=== PATIENT | male | born 1965 | race African-American/Black ===

== ENCOUNTER 2025-04-30 23:09 | Emergency (ER) | payer MEDICAID, OTHER, SELFPAY ==
[2025-05-01 00:04] LABS: Acetaminophen Less than 10 mcg/mL (Less than 10); Lipase 77 U/L (8-78); Salicylate Less than 8.0 mg/dL (Less than 8.0)
[2025-05-01 00:29] LABS: Platelet Adequacy Comment Appears Adequate; Platelet Count 129 10x3/uL (150-450)
[2025-05-01 00:30] LABS: #Basophils 0.06 10x3/uL (0.0-0.2); #Eosinophils 0.10 10x3/uL (0.0-0.5); #Monocytes 0.53 10x3/uL (0.0-1.1); #Neutrophils 2.09 10x3/uL (1.5-8.4); %Basophils 1.1 % (0.0-2.0); %Eosinophils 1.8 % (0.0-6.0); %Lymphocytes 50.4 % (18.0-47.0); %Monocytes 9.4 % (0.0-10.0); %Neutrophils 36.8 % (40.0-75.0); Hematocrit 47.2 % (38.8-50.0); Hemoglobin 16.0 g/dL (13.5-17.5); Mean Corpuscular Hemoglobin 34.4 pg (27.0-33.0); Mean Corpuscular Volume 101.5 fL (81.2-95.1); Red Blood Cell (RBC) Count 4.65 10x6/uL (4.32-5.72); White Blood Cell (WBC) Count 5.66 10x3/uL (3.5-10.5)
[2025-05-01 00:57] LABS: ALT (SGPT) 19 U/L (Less than 45); AST (SGOT) 57 U/L (11-34); Albumin 3.6 g/dL (3.1-4.5); Alkaline Phosphatase 124 U/L (40-110); Anion Gap 22 mmol/L (10-20); BUN (Urea Nitrogen) 4 mg/dL (8.4-25.7); Bilirubin, Total 0.5 mg/dL (0.3-1.2); Calc. Creatinine Clearance 0 mL/min (70-130); Calcium 8.7 mg/dL (7.8-10.44); Carbon Dioxide 17 mmol/L (22-29); Chloride 105 mmol/L (98-107); Globulin 4.1 g/dL (2.4-3.5); Glucose 66 mg/dL (70-105); Potassium 3.6 mmol/L (3.5-5.1); Sodium 140 mmol/L (136-145)
[2025-05-01 01:00] LABS: Cocaine Metabolite Screen PRELIM POSITIVE (Negative); THC/Cannabinoid Screen Negative (Negative); Tricyclic Screen Negative (Negative)
== END 2025-05-01 07:12 ==
LOC: CSHERS 23:09
DX: F10.129 Alcohol abuse with intoxication, unspecified (principal); F17.210 Nicotine dependence, cigarettes, uncomplicated
CPT/HCPCS: 36415; 70450; 72125; 80053; 80306; 80307; 82140; 83690; 85025; 93005; 93010